=== PATIENT | female | born 1995 | race Caucasian/White ===

== ENCOUNTER 2019-03-28 08:01 | Emergency (ER) | payer BC ==
[~2019-03-28] VITALS: Ht 162.6 cm; Wt 59.0 kg
[2019-03-28] MEDS ORDERED: LIDOCAINE HCL 1% 20 ML VIAL ONE (08:29)
[2019-03-28] MEDS ORDERED: CEFTRIAXONE 1 G VIAL ONE (08:29)
[2019-03-28] MEDS ORDERED: CEFTRIAXONE 1 G VIAL IM ONE (08:30)
[2019-03-28 08:38] VITALS: BP 118/73
--- NOTE | 2019-03-28 08:39 | NUR ---
Patient discharged to home in stable conditon. Written and verbal after care instructions given. Patient verbalizes understanding of instructions.
== END 2019-03-28 08:40 | disposition home or self-care (01) ==
LOC: ER 08:01
DX: J02.9 Acute pharyngitis, unspecified (principal)
CPT/HCPCS: 96372; 99283; J0696; J3490; A4663